=== PATIENT | male | born 2000 | race American Indian/Alaskan Native ===

== ENCOUNTER 2018-01-26 17:39 | Emergency (ER) | payer SELFPAY ==
[2018-01-26] MEDS ORDERED: TYLENOL ONE (18:26)
[2018-01-26 18:27] VITALS: BP 144/78
[2018-01-26] MEDS ORDERED: TYLENOL PO ONE (18:28)
[2018-01-26] MEDS ORDERED: ULTRAM PO ONE (19:43)
[2018-01-26] MEDS ORDERED: ROCEPHIN IM ONE (19:43)
[2018-01-26] MEDS ORDERED: XYLOCAINE 1% MPF 5 mL INFILTRATI ONE (19:43)
[2018-01-26] MEDS ORDERED: DECADRON IV ONE (19:43)
--- NOTE | 2018-01-26 19:49 | Emergency Department Report ---
ED General Adult HPI - General Chief complaint: Sore Throat Stated complaint: THROAT PAIN Time Seen by Provider: 01/26/18 19:35 Source: patient Mode of arrival: Ambulatory Limitations: No Limitations - History of Present Illness Initial comments: Patient complains of a sore throat since Friday states is worse with eating or drinking. Patient denies any sick contacts and doesn't was having a fever at home. He denies a cough, headache, chest pain. -: Gradual Radiation: non-radiation Severity scale (0 -10): 4 Quality: dull Consistency: constant Improves with: none Worsens with: none Associated Symptoms: denies other symptoms Treatments Prior to Arrival: none - Related Data Previous Rx's Medication Instructions Recorded Last Taken Type Penicillin V Potassium 500 mg PO TID #21 tablet 01/26/18 Unknown Rx Prednisone 50 mg PO DAILY 5 Days #5 tablet 01/26/18 Unknown Rx traMADol [Ultram] 50 mg PO Q6HR PRN #20 tablet 01/26/18 Unknown Rx Allergies Allergy/AdvReac Type Severity Reaction Status Date / Time No Known Allergies Allergy Unverified 01/26/18 18:22 ED Review of Systems ROS: Stated complaint: THROAT PAIN Other details as noted in HPI Comment: All other systems reviewed and negative Constitutional: denies: chills, fever Eyes: denies: eye pain, eye discharge, vision change ENT: denies: ear pain, throat pain Respiratory: denies: cough, shortness of breath, wheezing Cardiovascular: denies: chest pain, palpitations Endocrine: no symptoms reported Gastrointestinal: denies: abdominal pain, nausea, diarrhea Genitourinary: denies: urgency, dysuria Musculoskeletal: denies: back pain, joint swelling, arthralgia Skin: denies: rash, lesions Neurological: denies: headache, weakness, paresthesias Psychiatric: denies: anxiety, depression Hematological/Lymphatic: denies: easy bleeding, easy bruising ED Past Medical Hx - Past Medical History Previous Medical History?: No - Surgical History Past Surgical History?: No - Social History Smoking Status: Never Smoker Substance Use Type: None - Medications Home Medications: Home Medications Medication Instructions Recorded Confirmed Last Taken Type Penicillin V Potassium 500 mg PO TID #21 tablet 01/26/18 Unknown Rx Prednisone 50 mg PO DAILY 5 Days #5 tablet 01/26/18 Unknown Rx traMADol [Ultram] 50 mg PO Q6HR PRN #20 tablet 01/26/18 Unknown Rx ED Physical Exam - General Limitations: No Limitations General appearance: alert, in no apparent distress - Head Head exam: Present: atraumatic, normocephalic - Eye Eye exam: Present: normal appearance - ENT ENT exam: Present: mucous membranes moist, other (palatine tonsils are erythematous and inflamed with exudate) - Neck Neck exam: Present: normal inspection, full ROM. Absent: lymphadenopathy - Respiratory Respiratory exam: Present: normal lung sounds bilaterally. Absent: respiratory distress - Cardiovascular Cardiovascular Exam: Present: regular rate, normal rhythm. Absent: systolic murmur, diastolic murmur, rubs, gallop - GI/Abdominal GI/Abdominal exam: Present: soft, normal bowel sounds. Absent: distended, tenderness - Rectal Rectal exam: Present: deferred - Extremities Exam Extremities exam: Present: normal inspection - Back Exam Back exam: Present: normal inspection - Neurological Exam Neurological exam: Present: alert, oriented X3, CN II-XII intact. Absent: motor sensory deficit - Psychiatric Psychiatric exam: Present: normal affect, normal mood - Skin Skin exam: Present: warm, dry, intact, normal color. Absent: rash ED Course Vital Signs 01/26/18 18:22 Temperature 100.1 F H Pulse Rate 89 Respiratory 16 Rate Blood Pressure 144/78 O2 Sat by Pulse 98 Oximetry ED Medical Decision Making - Medical Decision Making discussed results with patient Given IM meds and PO meds Patient presents no difficulty with swallowing or speaking Critical care attestation.: If time is entered above; I have spent that time in minutes in the direct care of this critically ill patient, excluding procedure time. ED Disposition Clinical Impression: Tonsillitis Disposition: DC-01 TO HOME OR SELFCARE Is pt being admited?: No Does the pt Need Aspirin: No Condition: Stable Instructions: Pharyngitis (ED) Additional Instructions: Return if worse Prescriptions: Penicillin V Potassium 500 mg PO TID #21 tablet Prednisone 50 mg PO DAILY 5 Days #5 tablet traMADol [Ultram] 50 mg PO Q6HR PRN #20 tablet PRN Reason: Pain Referrals: PRIMARY CAREMD [Primary Care Provider] - 3-5 Days JAMIE CARVAJAL MD [Staff Physician] - 3-5 Days [facility] [Outside] - 3-5 Days [facility] [Outside] - 3-5 Days Time of Disposition: 19:50
== END 2018-01-26 20:38 | disposition home or self-care (01) ==
LOC: ED 17:39
DX: J03.90 Acute tonsillitis, unspecified (principal)
CPT/HCPCS: 96372; 96374; 99283; J0696; J1100

== ENCOUNTER 2022-02-22 21:14 | Emergency (ER) | payer OTHER ==
[2022-02-22] MEDS ORDERED: ONDANSETRON 4 MG/2 ML INJ IV ONE (22:34)
[2022-02-22] MEDS ORDERED: MORPHINE 4 MG/1 ML INJ IV ONE (22:34)
[2022-02-22] MEDS ORDERED: MORPHINE 4 MG/1 ML INJ ONE (22:36)
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
[2022-02-22] MEDS ORDERED: HYDROmorphone 1 MG/1 ML INJ IV ONE (23:04)
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
[2022-02-23 00:06] VITALS: BP 157/99
== END 2022-02-23 00:05 | disposition short-term general hospital (02) ==
LOC: ED 21:14
DX: S52.91XA Unspecified fracture of right forearm, initial encounter for closed fracture (principal); T79.A11A Traumatic compartment syndrome of right upper extremity, initial encounter; V89.2XXA Person injured in unspecified motor-vehicle accident, traffic, initial encounter; Y93.89 Activity, other specified; Y92.89 Other specified places as the place of occurrence of the external cause; Y99.8 Other external cause status
CPT/HCPCS: 29125; 73090; 96374; 96375; 99291; J1170; J2270; J2405; 99285